=== PATIENT | female | born 1980 | race Caucasian/White ===

== ENCOUNTER 2018-05-25 09:12 | Emergency (ER) | payer OTHER ==
[2018-05-25 09:35] LABS: #Basophils 0.1 thou/uL (0.0-0.2); #Eosinphils 0.3 thou/uL (0.0-0.7); #Lymphocytes 2.7 thou/uL (1.20-3.40); #Monocytes 0.4 thou/uL (0.11-0.59); #Neutrophils 4.2 thou/uL (1.40-6.50); %Basophils 1.4 % (0.0-1.0); %Eosinophils 4.3 % (0.0-10.0); %Lymphocytes 34.4 % (21.0-51.0); %Monocytes 5.3 % (0.0-10.0); %Neutrophils 54.6 % (42.0-75.0); Hemoglobin 17.7 g/dL (12.0-16.0); Mean Corpuscular HGB CONC 34.3 g/dL (32.0-36.0); Mean Corpuscular Hemoglobin 33.1 pg (27.0-31.0); Mean Corpuscular Volume 96.7 fL (78.0-98.0); Mean Platelet Volume 6.5 fL (7.4-10.4); Platelet Count 235 thou/uL (130-400); Red Blood Cell (RBC) Count 5.35 mill/uL (4.20-5.40); White Blood Cell (WBC) Count 7.8 thou/uL (4.8-10.8)
[2018-05-25 09:56] LABS: Bilirubin Negative (Negative); Blood, Urine Negative (Negative); Clarity CLEAR (Clear); Glucose, Urine (Dipstick) Negative (Negative); Leukocyte Small (Negative); Nitrite Negative (Negative); Protein, Urine (Dipstick) Negative (Neg-Trace); Specific Gravity, Urine 1.014 (1.002-1.036); Urobilinogen 0.2 mg/dL (0.2-1.0); pH, Urine 6.5 (5.0-9.0)
[2018-05-25 09:57] LABS: Bacteria/HPF None Seen HPF (None Seen); Hyaline Casts/LPF 0-3 HYALINE CAST LPF (0-3 Hyaline); Pathc Cast-AUWi Flag 0.43 (0-2.49); Pregnancy Test - Urine (BHCG) Negative (Negative); Pregu Control Background? CLEAR/WHITE (CLR/WHITE); Pregu Control Bar Appear? YES (CONTROL BAR); Specific Gravity 1.014 (1.002-1.036); WBC/HPF 0-3 HPF (0-3)
[2018-05-25 10:03] LABS: ALT (SGPT) 42 U/L (8-55); AST (SGOT) 35 U/L (5-34); Albumin 5.5 g/dL (3.5-5.0); Alkaline Phosphatase 72 U/L (40-150); Anion Gap 14 mmol/L (10-20); BUN (Urea Nitrogen) 10 mg/dL (7.0-18.7); Bilirubin, Total 0.6 mg/dL (0.2-1.2); CK (CPK) 55 U/L (29-168); Calc. Creatinine Clearance 0 mL/min (70-130); Calcium 10.4 mg/dL (7.8-10.44); Carbon Dioxide 22 mmol/L (22-29); Chloride 104 mmol/L (98-107); Estimated GFR-MDRD 78; Globulin 3.5 g/dL (2.4-3.5); Glucose 99 mg/dL (70-105); Potassium 4.1 mmol/L (3.5-5.1); Sodium 136 mmol/L (136-145)
[2018-05-25 10:05] LABS: CKMB 1.2 ng/mL (0-6.6); Troponin I Less than 0.010 ng/mL (< 0.028)
--- NOTE | 2018-05-27 08:27 | EKG ---
Test Reason : Blood Pressure : / mmHG Vent. Rate : 068 BPM Atrial Rate : 068 BPM P-R Int : 120 ms QRS Dur : 116 ms QT Int : 410 ms P-R-T Axes : 041 009 019 degrees QTc Int : 435 ms Normal sinus rhythm Indeterminate axis Right bundle branch block Abnormal ECG Confirmed by CHER BLAIR ([id number] on 05/27/2018 8:26:25 AM Referred By: Confirmed By:CHER BLAIR
== END 2018-05-25 11:07 | disposition home or self-care (01) ==
LOC: ERS 09:12
DX: R00.2 Palpitations (principal); F17.210 Nicotine dependence, cigarettes, uncomplicated
CPT/HCPCS: 80053; 81003; 81015; 81025; 82550; 82553; 84484; 85025; 93005; 94760

== ENCOUNTER 2018-11-15 08:36 | Outpatient (CLI) | payer OTHER ==
--- NOTE | 2018-11-15 09:35 | RAD ---
Frontal radiograph chest 2 views of abdomen: 11/15/2018 COMPARISON: None HISTORY: Generalized abdominal pain with indigestion FINDINGS: Frontal radiograph chest demonstrates no pneumothorax, pleural fluid, focal consolidation, or alveolar edema. Upright imaging demonstrates no free intraperitoneal air. There is a paucity of gutierrez wel gas noted. 2 postoperative clips overlie the right hemipelvis. IMPRESSION: No radiographic evidence of acute cardiopulmonary disease. No free intraperitoneal air is evident. Possibility of bowel gas limits detailed assessment of the bowel gas pattern. No gas-filled dilated bowel noted.
[2018-11-15 09:41] LABS: #Basophils 0.1 thou/uL (0.0-0.2); #Eosinphils 0.1 thou/uL (0.0-0.7); #Lymphocytes 2.3 thou/uL (1.20-3.40); #Monocytes 0.4 thou/uL (0.11-0.59); #Neutrophils 3.8 thou/uL (1.40-6.50); %Basophils 1.5 % (0.0-1.0); %Eosinophils 2.2 % (0.0-10.0); %Lymphocytes 33.7 % (21.0-51.0); %Monocytes 5.3 % (0.0-10.0); %Neutrophils 57.3 % (42.0-75.0); Hemoglobin 15.3 g/dL (12.0-16.0); Mean Corpuscular HGB CONC 33.4 g/dL (32.0-36.0); Mean Corpuscular Hemoglobin 32.4 pg (27.0-31.0); Mean Corpuscular Volume 97.1 fL (78.0-98.0); Platelet Count 203 thou/uL (130-400); RBC Distribution Width 11.2 % (11.5-14.5); Red Blood Cell (RBC) Count 4.72 mill/uL (4.20-5.40); White Blood Cell (WBC) Count 6.7 thou/uL (4.8-10.8)
== END 2018-11-15 08:37 | disposition home or self-care (01) ==
LOC: SCSRAD 08:36
PROVIDERS: ATTEND Nurse Practitioner Family
DX: R10.84 Generalized abdominal pain (principal)
CPT/HCPCS: 36415; 74022; 85025

== ENCOUNTER 2018-12-13 08:03 | Outpatient (CLI) | payer OTHER ==
--- NOTE | 2018-12-13 08:38 | ULT ---
Abdominal ultrasound: Grayscale images of abdomen obtained according to protocol. INDICATIONS: Abdominal pain FINDINGS: Gallbladder has a normal sonographic appearance. No evidence of gallstones. Common bile duct is normal caliber. Liver is echogenic consistent with diffuse fatty infiltration. Spleen is unremarkable. Pancreas is mostly obscured but appears unremarkable as visualized. Visualized aorta and IVC appear unremarkable. Both kidneys are imaged and appear unremarkable. IMPRESSION: Hepatic steatosis.
== END 2018-12-13 08:04 | disposition home or self-care (01) ==
LOC: SCSULT 08:03
PROVIDERS: ATTEND Internal Medicine Gastroenterology
DX: R10.13 Epigastric pain (principal); K21.9 Gastro-esophageal reflux disease without esophagitis; K76.0 Fatty (change of) liver, not elsewhere classified
CPT/HCPCS: 76700

== ENCOUNTER 2019-10-08 14:20 | Outpatient (CLI) | payer OTHER ==
--- NOTE | 2019-10-08 14:56 | RAD ---
Exam: Right forearm 2 views: HISTORY: Arm numbness, tingling, and pain COMPARISON: None FINDINGS: No evidence for fracture, dislocation, or other significant acute osseous abnormality. IMPRESSION: No significant acute process.
--- NOTE | 2019-10-08 14:57 | RAD ---
Exam: Right humerus 2 views: HISTORY: Right arm numbness, tingling, and pain COMPARISON: None FINDINGS: No evidence for fracture, dislocation, or other significant acute osseous abnormality. IMPRESSION: No significant acute process.
--- NOTE | 2019-10-08 15:07 | RAD ---
RIGHT SHOULDER 3 VIEWS: Date: 10/08/2019 HISTORY: Right shoulder pain. FINDINGS/IMPRESSION: No fracture, dislocation, or bony destruction is seen. POS: [facility]
--- NOTE | 2019-10-08 15:08 | RAD ---
CERVICAL SPINE 5 VIEWS: Date: 10/08/2019 HISTORY: Right arm pain and numbness, tingling. FINDINGS: Mild degenerative changes are present at C4-5 and C5-6 levels. No fracture, subluxation, or bony dest ruction is seen. No change in alignment is noted on flexion or extension. IMPRESSION: Mild cervical spondylosis. POS: [facility]
== END 2019-10-08 14:21 | disposition home or self-care (01) ==
LOC: SCSRAD 14:20
PROVIDERS: ATTEND Nurse Practitioner Family
DX: M79.601 Pain in right arm (principal); M47.812 Spondylosis without myelopathy or radiculopathy, cervical region
CPT/HCPCS: 72050